=== PATIENT | male | born 1975 | race Two or more races ===

== ENCOUNTER 2020-10-28 21:01 | Emergency (ER) | payer OTHER ==
[~2020-10-28] VITALS: Ht 182.9 cm; Wt 117.9 kg
[2020-10-28] MEDS ORDERED: IBUPROFEN (22:05)
[2020-10-29] MEDS ORDERED: PEPCID AC20 MG PO (02:16)
[2020-10-29] MEDS ORDERED: ZOFRAN4 MG PO (02:16)
[2020-10-29] MEDS ORDERED: KETO10TA2 PO (02:16)
[2020-10-29] MEDS ORDERED: TAMS0.4C PO (02:16)
== END 2020-10-29 03:13 | disposition home or self-care (01) ==
LOC: ER 21:01
DX: N20.1 Calculus of ureter (principal); K76.0 Fatty (change of) liver, not elsewhere classified; R10.2 Pelvic and perineal pain